=== PATIENT | male | born 1960 | race Caucasian/White ===

== ENCOUNTER 2024-04-22 11:46 | Outpatient (AMB) | payer BC, SELFPAY ==
--- NOTE | 2024-04-22 11:48 | HO.NEPHOV_ITS ---
Vital Signs 04/22/24 11:49 Height 6 ft Weight 218 lb BMI 29.6 BP 110/72 Blood Pressure Location Lt brachial Position Sitting Pulse 71 Pulse Source Pulse Oximeter Pulse Oximetry (%) 94 Oxygen Delivery Method Room Air Intake Visit Reasons: Acute renal insufficiency/ Conf Allergies No Known Allergies Allergy (Verified 04/22/24 11:53) Medication List - Last Reconciled 04/22/24 by Alexx Nichole MD aspirin 81 mg PO DAILY atorvastatin 80 mg PO DAILY clopidogrel 75 mg PO DAILY finasteride 5 mg PO DAILY melatonin 10 mg PO BEDTIME PRN nitroglycerin (Nitrostat) 0.4 mg sublingual Q5M PRN omeprazole 20 mg PO DAILY tamsulosin 0.4 mg PO DAILY HPI Comments Details: Odell is a pleasant 63-year-old man with a history of coronary artery disease status post drug-eluting stent to LAD in 07/21/2023 history of pancreatitis and bilateral adrenal adenomas. He has a history of noninvasive papillary urothelial carcinoma. He has been referred for mild CKD. He has been followed by Urology. Last cystoscopy in 02/19/2024 did not reveal any cancer recurrence. Serum creatinine in April was 1.5. Back in 08/21/2023 creatinine was 1.2 mg/dL. He has a history of smoking. He quit in [facility] Medical History (Updated 04/29/24 @ 09:58 by Alexx Nichoel MD) Pulmonary nodule Prediabetes Obstructive sleep apnea syndrome Hyperlipidemia History of gross hematuria Esophageal reflux Erectile dysfunction CAD (coronary artery disease) Blood in urine Bladder cancer Adrenal adenoma Surgical History Hx of laminectomy Hx of colonoscopy (~11/2021) Family History Mother Dementia Father Diabetes mellitus Review of Systems Const Denies fever(s) and Denies weight loss Card Denies chest pain Resp Denies cough and Denies hemoptysis GI Denies abdominal pain, Denies diarrhea and Denies nausea Musc Denies back pain Neuro Denies focal weakness Physical Exam Vital Signs: Last Vital Signs Pulse 71 04/22/24 11:49 BP 110/72 04/22/24 11:49 Pulse Ox 94 04/22/24 11:49 Oxygen Delivery Method Room Air 04/22/24 11:49 BMI result Body Mass Index 29.6 Const General: comfortable; No acute distress Orientation/consciousness: patient oriented x3 Eyes General: appearance normal, both eyes and all related structures Visual Vickers: normal visual vickers by confrontation Neck Neck: Yes supple and Yes no JVD Resp Effort & Inspection: normal respiratory effort and respiratory effort not decreased Auscultation: rhonchi Cardio Palpation: no palpable S3 and no palpable S4 Heart sounds: no rubs GI Inspection: Yes normal to inspection Palpation (GI): Soft to palpation Percussion: Yes normal to percussion Auscultation: normal bowel sounds General: Yes no CVA tenderness Back/Spine/Pelvis Back: no CVA tenderness Skin General skin exam: no petechiae and no purpura Neuro General: patient oriented x3 and no focal motor deficits Extrem General: No clubbing and No edema Results Reviewed Nephrology Results: No Data to Display Assessment & Plan Assessment & Plan (1) Elevated serum creatinine: Code(s): R79.89 - Other specified abnormal findings of blood chemistry Category: Medical (2) Bladder cancer: Code(s): C67.9 - Malignant neoplasm of bladder, unspecified Category: Medical (3) Bilateral adrenal adenomas: Code(s): D35.01 - Benign neoplasm of right adrenal gland; D35.02 - Benign neoplasm of left adrenal gland Category: Medical Plan Odell has CKD in a setting of bladder carcinoma. Recent creatinine was 1.5 mg/dL as of 04/20/2024. Back in 2020 serum creatinine was between 1.3 and 1.4 mg/dL. I have initiated workup for CKD including a 24 urine collection for creatinine clearance. I will track down the imaging studies of the kidneys to assess echogenicity. For now I encouraged him to increase his p.o. fluid intake Continue to avoid nephrotoxic agents including NSAIDs. He will benefit from low-sodium diet. Returned to office after the baseline workup is completed I will keep you updated. Orders: Orders Basic Metabolic Panel 3 Weeks - Other specified abnormal findings of blood chemistry Creatinine, 24 Hr Group 3 Weeks - Other specified abnormal findings of blood chemistry Creatinine Clearance Urine 24U 3 Weeks - Other specified abnormal findings of blood chemistry UA and rflx microscopic 3 Weeks - Other specified abnormal findings of blood chemistry Scribe Plan - Not visible on output: Creatinine 1.2 in August Currently at 1.5. Has BPH symptoms Coding Level of Care Code New Pt Level 4 (89129) Diagnoses Elevated serum creatinine R79.89 Bladder cancer C67.9 Bilateral adrenal adenomas D35.01; D35.02
[2024-04-22 11:49] VITALS: BP 110/72; PULSE 71; O2SAT 94; BMI 29.6
== END 2024-04-22 12:20 | disposition home or self-care (01) ==
PROVIDERS: PCP Family Medicine; Referring Provider Family Medicine; Visit Provider Internal Medicine Hypertension Specialist
DX: R79.89 Other specified abnormal findings of blood chemistry (principal); C67.9 Malignant neoplasm of bladder, unspecified; D35.01 Benign neoplasm of right adrenal gland; D35.02 Benign neoplasm of left adrenal gland
CPT/HCPCS: 99204

== ENCOUNTER → 2024-04-22 11:46 | Outpatient (BNVA) | payer BC, SELFPAY | PROVIDERS: PCP Family Medicine; Referring Provider Family Medicine; Visit Provider Internal Medicine Hypertension Specialist ==

== ENCOUNTER 2024-06-12 11:08 | Outpatient (AMB) | payer BC, SELFPAY ==
--- OUTSIDE RECORDS SUMMARY | 2024-06-12 11:11 | XMS_ITS | Continuity of Care Document ---
Author Organization [facility] [address] [place] [address] Phone [phone] Care Team Providers Care Pearl Stringer Name Role Phone Garfield Veloz M.D. Care Team Information Receiv er [phone] Problems Active Problems Provider Date Adrenal adenoma Kurtis Ballesteros M.D. Onset: 07/31/2021 Blood in urine Kurtis Ballesteros M.D. Onset: 07/31/2021 Ex-smoker Kurtis Ballesteros M.D. Onset: 07/31/2021 Hyperlipidemia Kurtis Ballesteros M.D. Onset: 07/31/2021 Impaired fasting glycemia Jah Perera Onset: 05/31/2022 Obese class I Kurtis Ballesteros M.D. Onset: 07/31/2021 Obstructive sleep apnea syndrome Kurtis rodriges M.D. Onset: 05/31/2022 Social History Type Date Description Comments Sex Unknown Tobacco Use Start: Unknown Never Smoked Cigarettes ETOH Use Denies alcohol use Allergies and adverse reactions Description No Known Drug Allergies Medications Active Medications SIG Qnty Indications Ordering Provider Date [id number] Tablets Take 1 Tablet By Mouth Daily AT Bedtime Garfield Veloz M.D. Tamsulosin HCL0.4mg Capsules Take 1 Capsule By Mouth Every Evening Unknown Nitroglycerin0.4mg Tablets Sub Take 1 Tablet Under The Tongue Every 5 Minutes For 3 Doses as Needed For Chest P Garfield Veloz M.D. Vital Signs Date Vital Result Comment 05/30/2023 9:55am BP Systolic 110 mmHg BP Diastolic 72 mmHg Heart Rate 72 /min Height 72 inches 6'0 Weight 235.25 lb BMI (Body Mass Index) 31.9 kg/m2 Results Test Acquired Date Facility Test Result H/L Range Note Laboratory test finding 05/30/2023 Inhouse Glucose Fingerstick 121 Hemoglobin A1c 5.8% Laboratory test finding 06/22/2022 [facility] Cortisol 0.9 g /dL 1 Fract Plasma Metanephrines 06/22/2022 [facility] Plasma Normetanephrines 102.3 2 Plasma Metanephrines 47.7 3 Aldosterone/Renin Ratio 06/22/2022 [facility] Aldosterone 3.8 4 Renin, Plasma Activity 0.367 5 Aldosterone/Jose M in Ratio 10.4 6 Laboratory test finding 05/31/2022 Inhouse Glucose Fingerstick 120 1 Reference Range: 6-10 am: 6.0-18.4 ug/dL 4-8 pm: 2.7-10.5 ug/dL 2 Reference range: 0.0 to 285.2 Unit: pg/mL (NOTE) This test was developed and its performance characteristics determined by [facility]. It has not been cleared or approved by the Food and Drug Administration. 3 Reference range: 0.0 to 88.0 Unit: pg/mL (NOTE) This test was developed and its performance characteristics determined by [facility]. It has not been cleared or approved by the Food and Drug Administration[place] [address] 4 Reference range: 0.0 to 30.0 Unit: ng/dL (NOTE) This test was developed and its performance characteristics determined by [facility]. It has not been cleared or approved by the Food and Drug Administration. 5 Reference range: 0.1 67 to 5.380 Unit: ng/mL/hr (NOTE) This test was developed and its performance characteristics determined by [facility]. It has not been cleared or approved by the Food and Drug Administration. 6 Reference range: 0.0 to 30.0 (NOTE) Units: ng/dL per ng/mL/[place] [address] Medical Devices Description No Information Available Encounters Type Date Location Provider Dx Diagnosis Office Visit 05/30/2023 10:00a Main Office Kurtis Ballesteros M.D. E27.8 Other specified disorders of adrenal gland R73.01 Impaired fasting glu cose Assessments Date Code Description Provider 05/30/2023 E27.8 Nodule of adrenal cortex Ruth Ann Ballesteros M.D. 05/30/2023 R73.01 Impaired fasting glucose Ruth Ann Ballesteros M.D. Plan of Treatment No Information Available Functional Status Description No Information Available Mental Status Description No Information Available Referrals Refer to Dr Reason for Referral Status Appt Kurtis Cunha M.D. Created [address] [place] [address] Drive [address] [place] [address] [phone] Kurtis Ballesteros M.D. Created [address] [place] [address] Drive [address] [place] [address] [phone]
[2024-06-12 11:12] VITALS: BP 100/62; PULSE 81; O2SAT 94; BMI 30.5
--- NOTE | 2024-06-12 11:12 | HO.NEPHOV ---
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 Accompanied by: Self / Same As Patient Allergies No Known Allergies Allergy (Verified 06/12/24 11:14) Medication List - Last Reconciled 06/12/24 by Alexx Nichole MD amoxicillin 250 mg PO TID aspirin 81 mg PO DAILY atorvastatin 80 mg PO DAILY clopidogrel 75 mg PO DAILY finasteride 5 mg PO DAILY melatonin 10 mg PO BEDTIME PRN nitroglycerin (Nitrostat) 0.4 mg sublingual Q5M PRN omeprazole 20 mg PO DAILY tamsulosin 0.4 mg PO DAILY HPI Comments Details: Odell is a pleasant 63-year-old man with a history of coronary artery disease status post drug-eluting stent to LAD in 07/21/2023 history of pancreatitis and bilateral adrenal adenomas. He has a history of noninvasive papillary urothelial carcinoma. He has been referred for mild CKD. He has been followed by Urology. Last cystoscopy in 02/19/2024 did not reveal any cancer recurrence. Serum creatinine in April was 1.5. Back in 08/21/2023 creatinine was 1.2 mg/dL. He has a history of smoking. He quit in 199806/12/24 No new issues today [facility] Medical History (Updated 04/29/24 @ 09:58 by Alexx Nichole MD) Pulmonary nodule Prediabetes Obstructive sleep apnea syndrome Hyperlipidemia History of gross hematuria Esophageal reflux Erectile dysfunction CAD (coronary artery disease) Blood in urine Bladder cancer Adrenal adenoma Surgical History Hx of laminectomy Hx of colonoscopy (~11/2021) Family History Mother Dementia Father Diabetes mellitus Physical Exam Vital Signs: Last Vital Signs Pulse 81 06/12/24 11:12 BP 100/62 06/12/24 11:12 Pulse Ox 94 06/12/24 11:12 Oxygen Delivery Method Room Air 06/12/24 11:12 BMI result Body Mass Index 30.5 Results Reviewed Nephrology Results: No Data to Display Assessment & Plan Assessment & Plan (1) Elevated serum creatinine: Code(s): R79.89 - Other specified abnormal findings of blood chemistry Category: Medical (2) Bladder cancer: Code(s): C67.9 - Malignant neoplasm of bladder, unspecified Category: Medical (3) Bilateral adrenal adenomas: Code(s): D35.01 - Benign neoplasm of right adrenal gland; D35.02 - Benign neoplasm of left adrenal gland Category: Medical Plan Odell has CKD in a setting of bladder carcinoma. Recent creatinine was 1.5 mg/dL as of 04/20/2024. Repeat creatinine was 1.13 and 1.26. Twenty-four urine collection revealed a volume of 2500 cc. Creatinine clearance was 123 mL/minute. Based on C-G formula creatinine clearance was 87 mL/minute Renal ultrasonogram was unremarkable without any obstruction normal-appearing kidneys. At this point no further workup necessary. Continue to avoid nephrotoxic agents including NSAIDs. Scribe Plan - Not visible on output: Creatinine 1.2 in August Currently at 1.5. Has BPH symptoms Coding Level of Care Code Est Pt Level 3 (16554) Diagnoses Elevated serum creatinine R79.89 Bladder cancer C67.9 Bilateral adrenal adenomas D35.01; D35.02
== END 2024-06-12 16:37 | disposition home or self-care (01) ==
PROVIDERS: PCP Family Medicine; Visit Provider Internal Medicine Hypertension Specialist
DX: R79.89 Other specified abnormal findings of blood chemistry (principal); C67.9 Malignant neoplasm of bladder, unspecified; D35.01 Benign neoplasm of right adrenal gland; D35.02 Benign neoplasm of left adrenal gland
CPT/HCPCS: 99213